=== PATIENT | female | born 1975 | race American Indian/Alaskan Native ===

== ENCOUNTER 2021-01-17 08:00 | Outpatient (CLI) | payer OTHER | END 2021-01-17 08:30 | disposition home or self-care (01) | LOC: PPH VACUNA 08:00 | PROVIDERS: ATTEND Emergency Medicine Pediatric Emergency Medicine | DX: Z23 Encounter for immunization (principal) ==

== ENCOUNTER 2022-08-15 09:24 | Emergency (ER) | payer OTHER ==
[~2022-08-15] VITALS: Ht 165.1 cm; Wt 59.9 kg
[2022-08-15] MEDS ORDERED: SYNTHROID75 MCG PO (09:35)
[2022-08-15] MEDS ORDERED: DUI500 PO (11:41)
== END 2022-08-15 11:51 | disposition home or self-care (01) ==
LOC: ER 09:24
DX: S90.212A Contusion of left great toe with damage to nail, initial encounter (principal)

== ENCOUNTER 2022-10-28 07:52 | Outpatient (CLI) | payer OTHER ==
[~2022-10-28 07:52] MED LIST: DUI500 PO; SYNTHROID75 MCG PO
== END 2022-10-28 08:04 | disposition home or self-care (01) ==
LOC: RX STUDY 07:52
DX: R13.12 Dysphagia, oropharyngeal phase (principal); I10 Essential (primary) hypertension

== ENCOUNTER → 2024-02-29 | Outpatient (CLI) | payer OTHER | END | disposition home or self-care (01) | LOC: EKG 10:13 | DX: I10 Essential (primary) hypertension (principal) ==